=== PATIENT | female | born 1955 | race Caucasian/White ===

== ENCOUNTER 2023-08-14 16:09 | Emergency (ER) | payer OTHER, BC ==
--- OUTSIDE RECORDS SUMMARY | 2023-08-14 16:12 | XMS REPORT | Continuity of Care Document ---
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 Name Role Phone PCP, PATIENT DOES NOT HAVE A Primary Care Physic NATHAN Uribe Attending Clinician Unavailable KRISTIN LUNSFORD Attending Clinician Unavailable Allergies, Adverse Reactions, Alerts Allergy Name Allergy Type Status Severity Reaction(s) Onset Date Inactive Date Treating Clinician Comments Source NO KNOWN ALLERGIE S Drug Class Active [facility] Encounters Start Date/Time End Date/Time Encounter Type Admission Type Attending Clinicians Care Facility Care Department Encounter ID Source 2021-11-15 13:39:17 2021-11-15 23:59:00 Outpatient NATHAN MALIN [facility] [id number] [facility] 2020-12-12 11:40:00 2020-12-12 11:30:01 Outpatient KRISTIN STEPHENSON [facility] [id number] [facility]
--- NOTE | 2023-08-14 17:27 | RAD REPORT ---
EXAM DESCRIPTION: CT - Head Brain Wo Cont - 08/14/2023 5:19 pm CLINICAL HISTORY: Hypertensive urgency/headache COMPARISON: 2011 TECHNIQUE: Computed axial tomography of the head was obtained. IV contrast was not requested. All CT scans are performed using dose optimization technique as appropriate and may include automated exposure control or mA/KV adjustment according to patient size. FINDINGS: An intracranial bleed is not seen The ventricles are normal in caliber No extra-axial fluid collection is noted. Mild low-density areas within periventricular, deep and subcortical white matter likely represent is chemic changes secondary to small vessel disease. An empty sella turcica Fluid within the sinuses/ mastoids is not seen. IMPRESSION: No acute intracranial abnormality is seen If patient's symptoms persist MRI of the brain would be recommended
--- NOTE | 2023-08-14 18:26 | RAD REPORT ---
EXAM DESCRIPTION: [facility] Single View08/14/2023 5:09 pm CLINICAL HISTORY: Chest pain COMPARISON: 2007 FINDINGS: The lungs appear clear of acute infiltrate. The heart is normal size . Right cardiophrenic opacity unchanged could represent epicardial fat or pericardial cyst IMPRESSION: No acute abnormalities displayed
[2023-08-14 19:02] LABS: Hematocrit 42.6 % (36.0-45.0); Lymphocytes % 20.9 % (15.3-44.8); MCV 96.3 fL (80-100); MPV 6.9 fL (7.6-11.3); Platelets 282 thou/uL (152-406); RBC Red Blood Cell Count 4.43 M/uL (3.86-4.86)
[2023-08-14 19:20] LABS: Potassium 3.8 mEq/L (3.5-5.1)
[2023-08-14] MEDS ORDERED: cloNIDine HCL 0.1 MG TAB ONE ×2 (19:49→20:20)
--- NOTE | 2023-08-14 21:05 | EDPHYS ---
Physician Documentation [facility] Name: Eda Lozano Age: 68 yrs Sex: Female : 1955 Arrival Date: 08/14/2023 Time: 16:09 Bed [id number] Private MD: ED Physician Onel Armijo HPI: 08/14 16:24 This 68 yrs old Female presents to ER via Ambulatory with complaints of high blood sb4 pressure. 16:25 The patient has elevated blood pressure and discovered this at a physician's office, sb4 and sent to the emergency department for evaluation. Onset: The symptoms/episode began/occurred just prior to arrival. Modifying factors:. Associated signs and symptoms: Pertinent positives: dizziness, headache, Pertinent negatives: chest pain, dyspnea, lightheadedness, nausea, visual changes, vomiting. Severity of symptoms: in the emergency department the blood pressure is are actually worse, 217 mm Hg. The patient has not experienced similar symptoms in the past. The patient has not recently seen a physician. 20:05 is prescribed valsartan for "situational hypertension" and took one RN INTAKE. has not took sb4 one in a few months. does not regularly check her BP. Historical: - Allergies: 16:18 No Known Allergies; cm10 - PMHx: 16:18 Situational Hypertension; cm10 - Immunization history:: Adult Immunizations unknown. - Social history:: Smoking status: Patient reports the use of cigarette tobacco products, smokes one pack cigarettes per day. ROS: 16:25 Constitutional: Negative for fever, chills, and weight loss, sb4 16:25 Neuro: Positive for dizziness, headache, 16:25 All other systems are negative, Exam: 16:25 Constitutional: This is a well developed, well nourished patient who is awake, alert, sb4 and in no acute distress. Head/Face: Normocephalic, atraumatic. Eyes: Extra-ocular motions intact. Periorbital areas with no swelling, redness, or edema. ENT: Mucous membranes moist. Cardiovascular: Regular rate and rhythm with a normal S1 and S2. Respiratory: Lungs have equal breath sounds bilaterally, clear to auscultation and percussion. No rales, rhonchi or wheezes noted. No increased work of breathing, no retractions or nasal flaring. Abdomen/GI: Soft, non-tender, no distension. Skin: Warm, dry with normal turgor. Normal color with no rashes, no lesions, and no evidence of cellulitis. MS/ Extremity: Pulses equal, no cyanosis. Neurovascular intact. Full, normal range of motion. Neuro: Awake and alert, GCS 15, oriented to person, place, time, and situation. Motor strength 5/5 in all extremities. Sensory grossly intact. Vital Signs: 16:15 BP 217 / 124; Pulse 80; Resp 16; Temp 97.1; Pulse Ox 100% ; Weight 52.62 kg; Height 5 cm10 ft. 5 in. ; Pain 5/10; 19:37 BP 204 / 129; Pulse 70; Resp 13; Pulse Ox 99% on R/A; Pain 0/10; tm6 20:00 BP 108 / 107; Pulse 78; Resp 19; Pulse Ox 99% on R/A; nw1 20:30 BP 140 / 95; Pulse 70; Resp 19; Pulse Ox 99% on R/A; nw1 21:50 BP 147 / 90; Pulse 65; Resp 15; Pulse Ox 97% on R/A; nw1 16:15 Body Mass Index 19.30 (52.62 kg, 165.1 cm) cm10 16:15 Pain Scale: Adult cm10 19:37 Pain Scale: Adult tm6 20:00 Farrukh Page made aware nw1 Elver Coma Score: 21:50 Eye Response: spontaneous(4). Motor Response: obeys commands(6). Verbal Response: nw1 oriented(5). Total: 15. MDM: 16:22 Patient medically screened. sb4 16:25 Differential diagnosis: hypertensive crisis, Malignant HTN, CVA, intracerebral sb4 hemorrhage. Data interpreted: Pulse oximetry: on room air is 100 %. Interpretation: normal. 20:06 Data reviewed: vital signs, nurses notes, lab test result(s), EKG, radiologic studies. sb4 Historians other than the Patient: Spouse/Significant Other: . 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 Transition of care: After a detail discussion of the patient's case, care is transferred to Farrukh GUSTAFSON 08/14 16:23 Order name: Basic Metabolic Panel; Complete Time: 19:21 sb4 08/14 20:58 Interpretation: Normal except: NA 135; GLUC 112; GFR 89. cp 08/14 16:23 Order name: CBC with Diff; Complete Time: 19:11 sb4 08/14 16:23 Order name: Troponin HS; Complete Time: 19:21 sb4 08/14 16:23 Order name: XRAY Chest (1 view); Complete Time: 18:28 sb4 08/14 16:23 Order name: Head Brain Wo Cont CT; Complete Time: 17:31 sb4 08/14 16:23 Order name: EKG; Complete Time: 16:24 sb4 08/14 16:23 Order name: Cardiac monitoring; Complete Time: 19:35 sb4 08/14 16:23 Order name: EKG - Nurse/Tech; Complete Time: 18:55 sb4 08/14 16:23 Order name: IV Saline Lock; Complete Time: 18:55 sb4 08/14 16:23 Order name: Labs collected and sent; Complete Time: 18:55 sb4 08/14 16:23 Order name: O2 Per Protocol; Complete Time: 19:35 sb4 08/14 16:23 Order name: O2 Sat Monitoring; Complete Time: 19:35 sb4 EC:55 Rate is 108 beats/min. Rhythm is regular, Sinus tachycardia. AL interval is normal at sb4 158 msec. QRS interval is normal at 76 msec. QT interval is normal at [address] changes noted. Clinical impression: biatrial enlargement. Interpreted by me. Reviewed by me. Administered Medications: 19:36 Drug: cloNIDine PO 0.1 mg PO once Route: PO; tm6 20:10 Drug: cloNIDine PO 0.1 mg PO once Route: PO; nw1 Disposition: 08/15 08:59 Co-signature as Attending Physician, Onel Armijo MD I reviewed the patient's care rn provided by the Advanced Practice Provider and agree with the diagnosis and treatment plan. Disposition Summary: 08/14/23 21:05 Discharge Ordered Notes: Location: Home cp Problem: new cp Symptoms: have improved cp Condition: Stable cp Diagnosis - Hypertensive heart disease without heart failure cp Followup: sb4 - With: Francisco Montero MD - When: 2 - 3 days - Reason: Recheck today's complaints, Re-evaluation by your physician Discharge Instructions: - Discharge Summary Sheet sb4 - Hypertension, Adult sb4 Forms: - Medication Reconciliation Form cp - Thank You Letter cp - Antibiotic Education cp - Prescription Opioid Use cp - Patient Portal Instructions cp - Leadership Thank You Letter cp Prescriptions: - Diovan 40 mg Oral tablet - take 1 tablet ORAL route 2 times per day; 60 tablet; Refills: 0, Product cp Selection Permitted Signatures: Dispatcher [employer] Onel Sadler MD MD rn Page, Corey, PA PA cp Brown, Sophia PA-C PA-C sb4 Diane Wolff RN RN cm10 Melchor Chowdary RN RN tm6 Ana Cristina Benito RN RN nw1
--- NOTE | 2023-08-14 21:05 | ER ---
Nurse's Notes [facility] Name: Eda Lozano Age: 68 yrs Sex: Female : 1955 Arrival Date: 08/14/2023 Time: 16:09 Bed [id number] Private MD: Diagnosis: Hypertensive heart disease without heart failure Presentation: 08/14 16:15 Chief complaint: Patient states: Was sent to the ED by urgent care for high blood cm10 pressure. Pt states denies chest pain or shortness of breath. Pt reports taking medicine for blood pressure JAVA LEAD. Pt reports that she has a headache. Coronavirus screen: Vaccine status: Patient reports being unvaccinated. Client denies travel out of the [place] in the last 14 days. Ebola Screen: Patient denies travel to an Ebola-affected area in the 21 days before illness onset. No symptoms or risks identified at this time. Initial Sepsis Screen: Does the patient meet any 2 criteria? No. Patient's initial sepsis screen is negative. Does the patient have a suspected source of infection? No. Patient's initial sepsis screen is negative. Risk Assessment: Do you want to hurt yourself or someone else? Patient reports no desire to harm self or others. Onset of symptoms was August 14, 2023. 16:15 Method Of Arrival: Ambulatory cm10 16:15 Acuity: ANUSHKA 3 cm10 Historical: - Allergies: 16:18 No Known Allergies; cm10 - PMHx: 16:18 Situational Hypertension; cm10 - Immunization history:: Adult Immunizations unknown. - Social history:: Smoking status: Patient reports the use of cigarette tobacco products, smokes one pack cigarettes per day. Screenin:38 [facility] ED Fall Risk Assessment (Adult) History of falling in the last 3 months, tm6 including since admission No falls in past 3 months (0 pts). Abuse screen: Denies threats or abuse. Denies injuries from another. Nutritional screening: No deficits noted. Tuberculosis screening: No symptoms or risk factors identified. Assessment: 19:38 General: Appears in no apparent distress. Behavior is calm, cooperative. Pain: Denies tm6 pain. Neuro: Level of Consciousness is awake, alert, obeys commands, Oriented to person, place, time, situation. Cardiovascular: Capillary refill < 3 seconds Patient's skin is warm and dry. Cardiovascular: Rhythm is sinus rhythm. Respiratory: Airway is patent Respiratory effort is even, unlabored, Respiratory pattern is regular, symmetrical. GI: Abdomen is flat, non-distended. : No signs and/or symptoms were reported regarding the genitourinary system. EENT: No signs and/or symptoms were reported regarding the EENT system. Derm: No signs and/or symptoms reported regarding the dermatologic system. Musculoskeletal: No signs and/or symptoms reported regarding the musculoskeletal system. 19:52 Reassessment: Introductions made and patient placed on gown. Pt then stated "I can't nw1 see this" pointing to the IV in her RAC. Pt requested cool wash cloth. Cool wash cloth given to patient and towel to cover IV placed on right arm. Gary made aware. Will return to assess. Vital Signs: 16:15 BP 217 / 124; Pulse 80; Resp 16; Temp 97.1; Pulse Ox 100% ; Weight 52.62 kg; Height 5 cm10 ft. 5 in. ; Pain 5/10; 19:37 BP 204 / 129; Pulse 70; Resp 13; Pulse Ox 99% on R/A; Pain 0/10; tm6 20:00 BP 108 / 107; Pulse 78; Resp 19; Pulse Ox 99% on R/A; nw1 20:30 BP 140 / 95; Pulse 70; Resp 19; Pulse Ox 99% on R/A; nw1 21:50 BP 147 / 90; Pulse 65; Resp 15; Pulse Ox 97% on R/A; nw1 16:15 Body Mass Index 19.30 (52.62 kg, 165.1 cm) cm10 16:15 Pain Scale: Adult cm10 19:37 Pain Scale: Adult tm6 20:00 Farrukh Page made aware nw1 Vitals: 19:37 Cardiac Rhythm Assessment Regular Sinus rhythm. tm6 Elver Coma Score: 21:50 Eye Response: spontaneous(4). Motor Response: obeys commands(6). Verbal Response: nw1 oriented(5). Total: 15. ED Course: 16:11 Patient arrived in ED. rg4 16:15 Ayah Vega PA-C is PHCP. sb4 16:15 Onel Armijo MD is Attending Physician. sb4 16:18 Triage completed. cm10 16:18 Arm band placed on Patient placed in waiting room. cm10 17:10 XRAY Chest (1 view) In Process Unspecified. EDMS 17:20 Head Brain Wo Cont CT In Process Unspecified. EDMS 18:55 Basic Metabolic Panel Sent. cm10 18:55 CBC with Diff Sent. cm10 18:55 Troponin HS Sent. cm10 18:55 Initial lab(s) drawn, by me, sent to lab. EKG done, by ED staff, reviewed by Ayah Vega PA-C. Inserted saline lock: 20 gauge in right antecubital area, using aseptic technique. Blood collected. 19:25 Ana Cristina Benito, RN is Primary Nurse. nw1 19:38 Patient has correct armband on for positive identification. Bed in low position. Call tm6 light in reach. Provided Education on: VS monitoring. Door closed. Noise minimized. 19:38 No provider procedures requiring assistance completed. tm6 20:00 PHCP role handed off by Ayah Vega PA-C cp 20:00 Farrukh Goel PA is PHCP. cp 21:04 Francisco Montero MD is Referral Physician. cp 21:50 Client placed on continuous cardiac and pulse oximetry monitoring. NIBP monitoring nw1 applied. monitoring tech on. Pulse ox on. NIBP on. 21:50 IV discontinued, intact, bleeding controlled, No redness/swelling at site. Pressure nw1 dressing applied. Administered Medications: 19:36 Drug: cloNIDine PO 0.1 mg PO once Route: PO; tm6 20:10 Drug: cloNIDine PO 0.1 mg PO once Route: PO; nw1 Medication: 19:38 VIS not applicable for this client. tm6 Outcome: 21:05 Discharge ordered by . cp 21:50 Discharged to home with family, nw1 21:50 Condition: stable 21:50 Discharge instructions given to patient, Instructed on discharge instructions, follow up and referral plans. medication usage, Demonstrated understanding of instructions, follow-up care, medications, Prescriptions given X 1, 21:54 Patient left the ED. nw1 Signatures: Dispatcher [employer] EDMS Farrukh Goel PA PA cp Garcia, Rubi rg4 Ayah Vega PA-C PA-C sb4 Diane Wolff RN RN cmMelchor Villaseñor RN RN tm6 Ana Cristina Benito, RN RN nw1 Corrections: (The following items were deleted from the chart) 20:45 20:42 BP 140 / 95; Pulse 70bpm; Resp 19bpm; Pulse Ox 99% RA; nw1 nw1
[2023-08-14 22:12] VITALS: TEMP 97.1
[2023-08-14 22:27] VITALS: BP 147/90; O2SAT 97
--- NOTE | 2023-08-15 13:41 | EKG ---
Test Date: 2023-08-14 Test Time: 18:48:38 Internet Researcher: ZAIRE MEASUREMENT RESULTS: Intervals: Rate: 108 SC: 158 QRSD: 76 QT: 366 QTc: 490 Alice: P: 76 SC: 158 QRS: 22 T: 58 INTERPRETIVE STATEMENTS: Sinus tachycardia Biatrial enlargement Cannot rule out Anterior infarct, age undetermined Abnormal ECG No previous ECG available for comparison Electronically Signed On 08-15-23 13:39:24 ASSISTANT CHIEF TRAIN DISPATCHER by Francisco Montero
== END 2023-08-14 21:54 | disposition home or self-care (01) ==
LOC: ER 16:09
DX: I11.9 Hypertensive heart disease without heart failure (principal); I10 Essential (primary) hypertension; F17.210 Nicotine dependence, cigarettes, uncomplicated
CPT/HCPCS: 36415; 70450; 71045; 80048; 84484; 85025; 93005; 99285

== ENCOUNTER 2024-01-02 14:49 | Emergency (ER) | payer OTHER, BC ==
--- OUTSIDE RECORDS SUMMARY | 2024-01-02 14:52 | XMS REPORT | Continuity of Care Document ---
Author Name Unknown Address [address] [facility] [place] [address] [facility] thconnect Address [address] [facility] [place] [address] Care Team Providers Care Program Development Specialist Name Role Phone PCP, PATIENT DOES NOT HAVE A Primary Care Physic NATHAN Uribe Attending Clinician Unavailable KRISTIN LUNSFORD Attending Clinician Unavailable Allergies, Adverse Reactions, Alerts Allergy Name Allergy Type Status Severity Reaction(s) Onset Date Inactive Date Treating Clinician Comments Source NO KNOWN ALLERGIE S Drug Class Active [facility] Encounters Start Date/Time End Date/Time Encounter Type Admission Type Attending Clinicians Care Facility Care Department Encounter ID Source 2021-11-15 13:39:17 2021-11-15 23:59:00 Outpatient NATHAN MALIN [facility] [id number] [facility] 2020-12-12 11:40:00 2020-12-12 11:30:01 Outpatient KRISTIN STEPHENSON [facility] [id number] [facility]
[2024-01-02] MEDS ORDERED: cloNIDine HCL 0.1 MG TAB ONE (15:27)
--- NOTE | 2024-01-02 16:02 | RAD REPORT ---
EXAM DESCRIPTION: RAD - Chest Single View - 01/02/2024 3:53 pm CLINICAL HISTORY: HTN Chest pain. COMPARISON: <Comparisons> FINDINGS: Portable technique limits examination quality. The lungs are emphysematous but grossly clear. The heart is normal in size. No displaced fractures. IMPRESSION: No acute intrathoracic process suspected.
--- NOTE | 2024-01-02 16:14 | RAD REPORT ---
EXAM DESCRIPTION: CT - Head Brain Wo Cont - 01/02/2024 4:09 pm CLINICAL HISTORY: HTN;Headache Headache, hypertension, drowsiness COMPARISON: Head Brain Wo Cont dated 08/14/2023; HEAD BRAIN W O CONTRAST dated 06/20/2012 TECHNIQUE: All CT scans are performed using dose optimization technique as appropriate and may inclu de automated exposure control or mA/KV adjustment according to patient size. FINDINGS: No intracranial hemorrhage, hydrocephalus or extra-axial fluid collection.No areas of brai n edema or evidence of midline shift. The paranasal sinuses and mastoids are clear. The calvarium is intact. IMPRESSION: No acute intracranial abnormality.
[2024-01-02 16:26] LABS: Troponin High Sensitivity 4.9 pg/mL (<58.9)
--- NOTE | 2024-01-02 18:04 | EDPHYS ---
Physician Documentation [facility] Name: Eda Lozano Age: 68 yrs Sex: Female : 1955 Arrival Date: 01/02/2024 Time: 14:49 Bed 14 Private MD: ED Physician Onel Armijo HPI: 01/01 17:23 This 68 yrs old Female presents to ER via Ambulatory with complaints of High Blood rn Pressure, Nausea. 17:23 The patient has elevated blood pressure and discovered this at home. Onset: The rn symptoms/episode began/occurred at an unknown time. Modifying factors:. Severity of symptoms: At its worst the blood pressure was severe, in the emergency department the blood pressure is unchanged. The patient has experienced similar episodes in the past. Patient reports high blood pressure for the last few days. Reports feeling foggy and nausea. No chest pain or shortness of breath. No focal neurological deficit. Denies headache. Has had this happen multiple times, usually takes extra losartan, took some this morning and did not lower blood pressure so came in for evaluation after she called clinic and told her to come to emergency room. Otherwise feels okay. States has had this problem in the past and her workup was negative in the emergency room and discharged home. No recent changes in her blood pressure. Reports blood pressure tends to run high.. Historical: - Allergies: 14:57 No Known Allergies; as6 - PMHx: 14:57 Situational Hypertension; as6 - PSHx: 14:57 section; Tonsillectomy; foot; as6 - Immunization history:: Adult Immunizations up to date. - Infectious Disease History:: Denies. - Social history:: Smoking status: Patient denies any tobacco usage or history of. - Family history:: not pertinent. - Hospitalizations: : No recent hospitalization is reported. ROS: 17:23 Constitutional: Negative for fever, chills, and weight loss, Neck: Negative for injury, rn pain, and swelling, Cardiovascular: Negative for chest pain, palpitations, and edema, Respiratory: Negative for shortness of breath, cough, wheezing, and pleuritic chest pain, Abdomen/GI: Negative for abdominal pain, vomiting, diarrhea, and constipation, Back: Negative for injury and pain, MS/Extremity: Negative for injury and deformity, Skin: Negative for injury, rash, and discoloration, Neuro: Negative for headache, weakness, numbness, tingling, and seizure, Exam: 16:18 ECG was reviewed by the Attending Physician. rn 17:23 Constitutional: This is a well developed, well nourished patient who is awake, alert, rn and in no acute distress. Head/Face: Normocephalic, atraumatic. Neck: Trachea midline, no masses palpated, and no cervical lymphadenopathy. Supple, full range of motion without nuchal rigidity, or vertebral point tenderness. No Meningismus. Cardiovascular: Regular rate and rhythm. No pulse deficits. Respiratory: No increased work of breathing, no retractions or nasal flaring. Abdomen/GI: Soft, non-tender MS/ Extremity: Pulses equal, no cyanosis. Neurovascular intact. Full, normal range of motion. Equal circumference. Neuro: Awake and alert, GCS 15, oriented to person, place, time, and situation. Cranial nerves II-XII grossly intact. Motor strength 5/5 in all extremities. Sensory grossly intact. Vital Signs: 14:56 BP 202 / 149; Pulse 106; Resp 18 S; Temp 97.8(TE); Pulse Ox 98% on R/A; Weight 53.52 kg as6 (R); Height 5 ft. 5 in. (R); Pain 0/10; 16:00 BP 147 / 97; Pulse 56; Resp 18; Pulse Ox 98% ; bp 18:00 BP 148 / 80; Pulse 69; Resp 16; Pulse Ox 100% ; bp 14:56 Body Mass Index 19.64 (53.52 kg, 165.1 cm) as6 14:56 Pain Scale: Adult as6 MDM: 15:00 Patient medically screened. rn 18:01 Differential diagnosis: hypertensive crisis, Malignant HTN, intracerebral hemorrhage. rn Data reviewed: vital signs, nurses notes, lab test result(s), EKG, radiologic studies, CT scan, plain films, and as a result, I will discharge patient. Counseling: I had a detailed discussion with the patient and/or guardian regarding the historical points, exam findings, and any diagnostic results supporting the discharge/admit diagnosis, lab results, radiology results, the need for outpatient follow up, to return to the emergency department if symptoms worsen or persist or if there are any questions or concerns that arise at home. Response to treatment: the patient's symptoms have markedly improved after treatment, and as a result, I will discharge patient. Special discussion: I discussed with the patient/guardian in detail that at this point there is no indication for admission to the hospital. It is understood, however, that if the symptoms persist or worsen the patient needs to return immediately for re-evaluation. ED course: I have personally reviewed all of the results, including but not limited to blood tests and imaging deemed necessary to safely discharge this patient at this time. All results given to and printed out for patient. I personally went over all the results with the patient and answered all questions. Patient will follow-up with PCP and or specialist as discussed. Return precautions given and understood.. 01/01 15:23 Order name: CBC with Diff; Complete Time: 18:16 rn 01/01 15:23 Order name: Basic Metabolic Panel; Complete Time: 16:41 01/01 15:23 Order name: Protime (+inr); Complete Time: 18:16 01/01 15:23 Order name: Ptt, Activated; Complete Time: 18:16 01/01 15:23 Order name: Troponin HS; Complete Time: 16:41 01/01 15:23 Order name: CT Head Brain wo Cont; Complete Time: 16:15 01/01 15:23 Order name: XRAY Chest (1 view); Complete Time: 16:15 01/01 15:23 Order name: EKG; Complete Time: 15:24 01/01 15:23 Order name: IV Start; Complete Time: 15:44 01/01 15:23 Order name: Cardiac monitoring; Complete Time: 15:30 01/01 15:23 Order name: EKG - Nurse/Tech; Complete Time: 15:30 rn 01/01 15:23 Order name: Labs collected and sent; Complete Time: 15:43 01/01 15:23 Order name: O2 Per Protocol; Complete Time: 15:30 01/01 15:23 Order name: O2 Sat Monitoring; Complete Time: 15:01/01 15:59 Order name: Labs - recollect needed: recollect blue top; Complete Time: 17:59 bd 01/01 16:00 Order name: Labs - recollect needed: recollect lavender top; Complete Time: 17:59 bd EC:18 Rate is 68 beats/min. Rhythm is regular. QRS [place] is Normal. MI interval is normal. QRS rn interval is normal. QT interval is normal. No Q waves. T waves are Normal. No ST changes noted. Clinical impression: Normal ECG. Interpreted by me. Reviewed by me. Administered Medications: 15:30 Drug: cloNIDine PO 0.1 mg PO once Route: PO; bp 18:43 Follow up: Response: No adverse reaction bp Disposition Summary: 01/02/24 18:03 Discharge Ordered Notes: Location: Home rn Problem: new rn Symptoms: have improved rn Condition: Stable rn Diagnosis - Essential (primary) hypertension rn Followup: rn - With: Private Physician - When: As needed - Reason: Recheck today's complaints, Re-evaluation by your physician Discharge Instructions: - Discharge Summary Sheet rn - Hypertension, Adult rn - Managing Your Hypertension rn Forms: - Medication Reconciliation Form rn - Antibiotic pricing intern - Prescription Opioid Use rn - Patient Portal Instructions rn - Leadership Thank You Letter rn Prescriptions: - valsartan 80 mg Oral tablet - take 1 tablet ORAL route daily; 60 tablet; Refills: 0, Product Selection rn Permitted Signatures: Dispatcher [employer] EDEda Jama Roman, MD MD rn Ethan Escalante, RN RN Hank Solis, RN RN as6 Corrections: (The following items were deleted from the chart) 15:24 15:24 CBC+H.LAB.BRZ ordered. EDMS EDMS 15:24 15:24 BASIC METABOLIC PANEL+C.LAB.BRZ ordered. EDMS EDMS 15:24 15:24 PROTIME (+INR)+COAG.LAB.BRZ ordered. EDMS EDMS 15:24 15:24 PTT, ACTIVATED+COAG.LAB.BRZ ordered. EDMS EDMS 15:24 15:24 Troponin High Sensitivity+C.LAB.BRZ ordered. EDMS EDMS
--- NOTE | 2024-01-02 18:04 | ER ---
Nurse's Notes [facility] Name: Eda Lozano Age: 68 yrs Sex: Female : 1955 Arrival Date: 01/02/2024 Time: 14:49 Bed 14 Private MD: Diagnosis: Essential (primary) hypertension Presentation: 01/01 14:58 Chief complaint: Patient states: pt reports high blood pressure for the last several as6 days. Coronavirus screen: At this time, the client does not indicate any symptoms associated with coronavirus-19. Ebola Screen: No symptoms or risks identified at this time. Initial Sepsis Screen: Does the patient meet any 2 criteria? No. Patient's initial sepsis screen is negative. Does the patient have a suspected source of infection? No. Patient's initial sepsis screen is negative. Risk Assessment: Do you want to hurt yourself or someone else? Patient reports no desire to harm self or others. Onset of symptoms was December 30, 2023. 14:58 Acuity: ANUSHKA 2 as6 14:58 Method Of Arrival: Ambulatory as6 Triage Assessment: 15:00 General: Appears in no apparent distress. Behavior is cooperative, appropriate for age, bp anxious. Pain: Denies pain. EENT: No deficits noted. Neuro: Level of Consciousness is awake, alert, obeys commands, Oriented to Appropriate for age. Respiratory: No deficits noted. GI: Reports nausea. Historical: - Allergies: 14:57 No Known Allergies; as6 - PMHx: 14:57 Situational Hypertension; as6 - PSHx: 14:57 section; Tonsillectomy; foot; as6 - Immunization history:: Adult Immunizations up to date. - Infectious Disease History:: Denies. - Social history:: Smoking status: Patient denies any tobacco usage or history of. - Family history:: not pertinent. - Hospitalizations: : No recent hospitalization is reported. Screenin:00 [facility] ED Fall Risk Assessment (Adult) History of falling in the last 3 months, bp including since admission No falls in past 3 months (0 pts). Abuse screen: Denies threats or abuse. Denies injuries from another. Nutritional screening: No deficits noted. Tuberculosis screening: No symptoms or risk factors identified. Assessment: 15:00 General: SEE TRIAGE NOTE. Neuro: Level of Consciousness is awake, alert, obeys bp commands, Oriented to Appropriate for age. GI: Abdomen is non-distended, Reports nausea. 16:32 Reassessment: PHLEBOTOMY CONTACTED FOR REDRAW. bp Vital Signs: 14:56 BP 202 / 149; Pulse 106; Resp 18 S; Temp 97.8(TE); Pulse Ox 98% on R/A; Weight 53.52 kg as6 (R); Height 5 ft. 5 in. (R); Pain 0/10; 16:00 BP 147 / 97; Pulse 56; Resp 18; Pulse Ox 98% ; bp 18:00 BP 148 / 80; Pulse 69; Resp 16; Pulse Ox 100% ; bp 14:56 Body Mass Index 19.64 (53.52 kg, 165.1 cm) as6 14:56 Pain Scale: Adult as6 ED Course: 14:52 Patient arrived in ED. im 14:56 Arm band placed on left wrist. as6 14:59 Triage completed. as6 15:00 Onel Armijo MD is Attending Physician. rn 15:00 Patient has correct armband on for positive identification. bp 15:09 Ethan Escalante, RN is Primary Nurse. bp 15:44 Protime (+inr) Sent. bp 15:44 Ptt, Activated Sent. bp 15:44 Basic Metabolic Panel Sent. bp 15:44 CBC with Diff Sent. bp 15:44 Troponin HS Sent. bp 15:55 XRAY Chest (1 view) In Process Unspecified. EDMS 16:09 CT Head Brain wo Cont In Process Unspecified. EDMS 18:00 Protime (+inr) Sent. bp 18:00 Ptt, Activated Sent. bp 18:00 CBC with Diff Sent. bp 18:42 No provider procedures requiring assistance completed. IV discontinued, intact, bp bleeding controlled, No redness/swelling at site. Pressure dressing applied. Administered Medications: 15:30 Drug: cloNIDine PO 0.1 mg PO once Route: PO; bp 18:43 Follow up: Response: No adverse reaction bp Medication: 15:00 VIS not applicable for this client. bp Outcome: 18:03 Discharge ordered by . rn 18:42 Discharged to home ambulatory, with family, bp 18:42 Condition: stable 18:42 Discharge instructions given to patient, family, Instructed on discharge instructions, follow up and referral plans. medication usage, Demonstrated understanding of instructions, follow-up care, medications, Prescriptions given X 1 18:43 Patient left the ED. bp Signatures: Dispatcher [employer] EDMS Onel Armijo MD MD rn Peltier, Brian RN RN Hank Solis RN RN as6 Helena Giordano
[2024-01-02 18:13] LABS: Absolute Basophils 0.1 K/uL (0-0.5); Absolute Eosinophils 0.1 K/uL (0-0.5); Absolute Lymphocytes (CBC) 2.6 K/uL (0.7-4.9); Absolute Monocytes 0.7 K/uL (0.1-1.3); Absolute Neutrophil 6.5 K/uL (1.8-8.0); Basophils % 0.7 % (0-1.3); Eosinophils % 1.3 % (0-4.4); Hemoglobin 13.7 g/dL (12.0-15.0); Lymphocytes % 25.8 % (15.3-44.8); MCH 33.7 pg (27.0-35.0); MCV 96.3 fL (80-100); MPV 7.1 fL (7.6-11.3); Monocytes % 7.5 % (3.3-12.3); Neutrophils % 64.7 % (41.7-73.7); Nucleated Red Blood Cells % 0.1 % (0-0); PTT, Activated Partial Thromb 31.7 SECONDS (24.3-36.9); Platelets 264 thou/uL (152-406); RBC Red Blood Cell Count 4.06 M/uL (3.86-4.86); Red Cell Distribution Width 13.3 % (12.1-15.2)
[2024-01-02 18:14] LABS: PT Prothrombin Time 10.7 SECONDS (9.5-12.5); Protime INR 0.97
[2024-01-02 18:56] VITALS: BP 148/80; TEMP 97.8; O2SAT 100
--- NOTE | 2024-01-03 13:09 | EKG ---
Test Date: 2024-01-02 Test Time: 15:33:28 [employer] Trainer: MARY MEASUREMENT RESULTS: Intervals: Rate: 68 OH: 136 QRSD: 82 QT: 390 QTc: 414 [place]: P: 57 OH: 136 QRS: 69 T: 15 INTERPRETIVE STATEMENTS: Normal sinus rhythm Normal ECG Compared to ECG 08/14/2023 18:48:38 Sinus tachycardia no longer present Atrial abnormality no longer present Myocardial infarct finding no longer present Electronically Signed On 01-03-24 13:06:08 CDT by Francisco Montero
== END 2024-01-02 18:43 | disposition home or self-care (01) ==
LOC: ER 14:49
DX: I10 Essential (primary) hypertension (principal); R11.0 Nausea
CPT/HCPCS: 36415; 70450; 71045; 80048; 84484; 85025; 85610; 85730; 93005; 99284